=== PATIENT | male | born 1965 | race Caucasian/White ===

== ENCOUNTER → 2018-02-01 11:21 | Outpatient (CLI) | payer OTHER ==
[2016-09-16 12:27] VITALS: BMI 29.3
[~2018-02-01 11:21] MED LIST: BACTRIM 400-801 TAB PO; BACTRIM DS TABL1 TAB PO; BAYER CHEWABLE81 MG PO; DILAUDID8 MG PO; HYDROCODONE-APA1 TAB PO; IBUPROFEN800 MG PO; PERCOCET 10/3251 TA1 PO; TUMS500 MG PO; VICOPROFEN 7.5/1 TAB PO; ZANTAC150 MG PO; [UNRECOGNIZED DRUG - OTHER] PO
[2018-02-01 11:41] LABS: BASOPHILS 0.3 % (0-2); EOSINOPHILS 2.4 % (0-7); HEMATOCRIT 41.5 % (42.0-54.0); HEMOGLOBIN 13.8 g/dL (13.5-17.5); IMMATURE GRANULOCYTES 0.3 % (0-5); LYMPHOCYTES 29.8 % (15-50); MCH 29.4 pg (26.0-34.0); MCHC 33.3 g/dL (31.0-37.0); MCV 88.5 fL (80.0-100.0); MEAN PLATELET VOLUME 9.9 fL (7.4-10.4); MONOCYTES 10.7 % (2-11); NEUTROPHILS 56.5 % (40-80); RBC 4.69 10x6/uL (4.20-6.10); WBC 6.3 10x3/uL (4.8-10.8)
[2018-02-01 11:42] LABS: PLATELET COUNT 250 10x3/uL (130-400)
[2018-02-01 12:43] LABS: ERYTHROCYTE SEDIMENTATION RATE 9 mm/hr (0-20)
== END | disposition home or self-care (01) ==
LOC: D.LABREF 11:21
PROVIDERS: Nurse Practitioner Family
DX: M25.562 Pain in left knee (principal)

== ENCOUNTER → 2018-03-17 10:30 | Outpatient (CLI) | payer OTHER ==
[2016-09-16 12:27] VITALS: BMI 29.3
== END | disposition home or self-care (01) ==
LOC: D.RAD 10:15
DX: Z02.71 Encounter for disability determination (principal)

== ENCOUNTER → 2018-03-24 14:26 | Outpatient (CLI) | payer OTHER ==
[2016-09-16 12:27] VITALS: BMI 29.3
== END | disposition home or self-care (01) ==
LOC: D.RAD 14:26
DX: M54.2 Cervicalgia (principal); M54.5 Low back pain

== ENCOUNTER 2018-11-28 15:18 | Inpatient (IN) | payer MEDICAID ==
[~2018-11-28] VITALS: Ht 188 cm; Wt 98.4 kg
[2018-11-28 16:24] LABS: BASOPHILS 0.1 % (0-2); EOSINOPHILS 0.6 % (0-7); HEMOGLOBIN 12.4 g/dL (13.5-17.5); IMMATURE GRANULOCYTES 0.3 % (0-5); LYMPHOCYTES 8.5 % (15-50); MCH 28.1 pg (26.0-34.0); MCHC 33.5 g/dL (31.0-37.0); MCV 83.9 fL (80.0-100.0); MONOCYTES 6.8 % (2-11); NEUTROPHILS 83.7 % (40-80); RBC 4.41 10x6/uL (4.20-6.10); RDW 13.4 % (11.5-14.5); WBC 15.5 10x3/uL (4.8-10.8)
[2018-11-28 16:25] LABS: PLATELET COUNT 331 10x3/uL (130-400)
[2018-11-28 16:42] LABS: ALBUMIN 2.6 g/dL (3.4-5.0); ALKALINE PHOSPHATASE 86 U/L (46-116); ALT (SGPT) 20 U/L (10-68); BILIRUBIN - TOTAL 0.37 mg/dL (0.2-1.3); CALC OSMOLALITY 270 mosm/kg (275-300); CALCIUM 8.3 mg/dL (8.5-10.1); CARBON DIOXIDE 24.6 mmol/L (21.0-32.0); CHLORIDE - SERUM 96 mmol/L (98-107); CREATININE - SERUM 0.8 mg/dL (0.6-1.3); POTASSIUM - SERUM 3.8 mmol/L (3.5-5.1); PROTEIN - SERUM 7.5 g/dL (6.4-8.2); SODIUM 133 mmol/L (136-145); UREA NITROGEN 16 mg/dL (7-18); eGFR NON AFRICAN AMERICAN > 90 mL/min (90-120)
[2018-11-28 16:46] LABS: GLUCOSE 179 mg/dL (74-106)
[2018-11-28 17:50] LABS: C-REACTIVE PROTEIN 20.4 mg/dL (0.0-0.9)
--- NOTE | 2018-11-28 19:32 | NUR ---
ZOSYN INFUSION COMPLETE.
[2018-11-28 19:55] VITALS: BP 150/83
--- NOTE | 2018-11-28 20:19 | NUR ---
PT ARRIVED TO M3 WITH HOSPITAL FROM ER, PT ALERT AND ORIENTED.
[2018-11-28 23:41] VITALS: BP 147/80
[2018-11-28] MEDS ORDERED: NEURONTIN 400400 MG PO (23:50)
[2018-11-28] MEDS ORDERED: IBUPROFEN800 MG PO (23:51)
[2018-11-28] MEDS ORDERED: MS CONTIN30 MG PO (23:52)
[2018-11-28] MEDS ORDERED: HYDROCODON-ACE1 EA10 PO (23:53)
[2018-11-29 00:09] VITALS: BP 150/83; BMI 27.9
--- NOTE | 2018-11-29 00:13 | NUR ---
REST QUIETLY IN BED, DENIES NEEDS AT THIS TIME, CALL LIGHT IN REACH.
--- NOTE | 2018-11-29 02:04 | NUR ---
REST IN BED, CALL LIGHT IN REACH.
--- NOTE | 2018-11-29 03:45 | NUR ---
UA SAMPLE COLLECTED AND SENT IT TO LAB.
[2018-11-29 03:46] VITALS: BP 154/81
[2018-11-29 04:44] LABS: UDS - AMPHET NEGATIVE QUAL (NEGATIVE); UDS - BARB NEGATIVE QUAL (NEGATIVE); UDS - BENZO NEGATIVE QUAL (NEGATIVE); UDS - COCAINE NEGATIVE QUAL (NEGATIVE); UDS - OPIATE POSITIVE QUAL (NEGATIVE); UDS - PCP NEGATIVE QUAL (NEGATIVE); UDS - THC NEGATIVE QUAL (NEGATIVE)
[2018-11-29 06:00] LABS: BASOPHILS 0.1 % (0-2); EOSINOPHILS 0.7 % (0-7); HEMATOCRIT 33.3 % (42.0-54.0); HEMOGLOBIN 11.4 g/dL (13.5-17.5); IMMATURE GRANULOCYTES 0.2 % (0-5); LYMPHOCYTES 12.4 % (15-50); MCH 28.3 pg (26.0-34.0); MCHC 34.2 g/dL (31.0-37.0); MCV 82.6 fL (80.0-100.0); MEAN PLATELET VOLUME 8.8 fL (7.4-10.4); MONOCYTES 8.1 % (2-11); NEUTROPHILS 78.5 % (40-80); PLATELET COUNT 335 10x3/uL (130-400); RBC 4.03 10x6/uL (4.20-6.10); RDW 13.5 % (11.5-14.5); WBC 13.6 10x3/uL (4.8-10.8)
[2018-11-29 06:41] LABS: ALBUMIN 2.3 g/dL (3.4-5.0); ALKALINE PHOSPHATASE 77 U/L (46-116); ALT (SGPT) 19 U/L (10-68); BILIRUBIN - TOTAL 0.44 mg/dL (0.2-1.3); CALC OSMOLALITY 268 mosm/kg (275-300); CALCIUM 8.2 mg/dL (8.5-10.1); CARBON DIOXIDE 25.4 mmol/L (21.0-32.0); CHLORIDE - SERUM 99 mmol/L (98-107); CREATININE - SERUM 0.7 mg/dL (0.6-1.3); GLUCOSE 135 mg/dL (74-106); PROTEIN - SERUM 6.9 g/dL (6.4-8.2); SODIUM 134 mmol/L (136-145); eGFR NON AFRICAN AMERICAN > 90 mL/min (90-120)
[2018-11-29 06:51] LABS: UREA NITROGEN 10 mg/dL (7-18)
[2018-11-29 07:56] VITALS: BP 147/80
[2018-11-29 12:52] VITALS: BP 157/86
[2018-11-29 15:44] VITALS: BP 152/83
--- NOTE | 2018-11-29 19:10 | NUR ---
RETURNING FROM I&D STEAM STATION SUPERVISOR TO DO ASSWSSMENT. IV PATENT LEFT FOREARM LCTA RESP EVEN AND UNLABORED PEDAL PULSE PRESENT BILAT
[2018-11-29 21:00] VITALS: BP 142/85
[2018-11-30] VITALS: BP 152/85
[2018-11-30 05:04] VITALS: BP 134/76
--- NOTE | 2018-11-30 07:00 | NUR ---
RESTING QUIETLY IN BED, ASKED WHEN HE COULD HAVE HIS NEXT PAIN MED, INSTRUCTED PT THAT HE HAD MORPHINE LESS THAN AN HOUR AGO AND HE COULD HAVE IT EVERY FOUR HOURS, PATIENT SATISFIED. DENIES FURTHER NEEDS OR REQUESTS, IV PATENT AND INFUSING FLUIDS PER ORDERS, CALL LIGHT AT HAND, INSTRUCTED TO CALL WITH NEEDS.
[2018-11-30 08:08] VITALS: BP 147/69
--- NOTE | 2018-11-30 12:16 | MORECARE ---
CASE MANAGEMENT DISCHARGE SUMMARY PATIENT: RAYMUNDO BENAVIDEZ UNIT: [id number] ADM DATE: 11/28/18 AGE: 53 : 69 SEX: M ROOM/BED: D.1211 AUTHOR: SHELLY DODSON PHYSICIAN: REFERRING PHYSICIAN: RAYRAY DUARTE MD DATE OF SERVICE: 11/30/18 Discharge Plan Patient Name: RAYMUNDO BENAVIDEZ Facility: [facility]:Vendor : 1965 Planned Disposition: Anticipated Discharge Date: Discharge Date: Expected LOS: Initial Reviewer: [id number] Initial Review Date: 11/28/2018 Generated: 11/30/18 1:16 pm Comments DCP- Discharge Planning Updated by [id number]: Dorinda Sharma on 11/30/18 11:[address] Patient Name: RAYMUNDO BENAVIDEZ Admission Status: ER Accout number: [id number] Admission Date: 11-28-2018 : 1965 Admission Diagnosis: Attending: RAYRAY DUARTE Current LOS: 2 Anticipated DC Date: Planned Disposition: Primary Insurance: MEDICAID [place] Discharge Planning Comments: CM ATTEMPTED TO TALK TO PATIENT ABOUT DC PLANNING. PATIENT WAS MUMBLING AND DIDN'T WANT TO TALK NOW. WOUND VAC NOTED, WILL NEED TO ASSESS FOR HH AT TIME OF DC. CM WILL FOLLOW UP AT A LATER DATE. Gun Fitter: Dorinda Sharma Patient Name: RAYMUNDO BENAVIDEZ Page [phone] at 1216 All edits/amendments must be made on the electronic document DICTATION DATE: 11/30/18 1215 ELECTRICIAN WIRING: WILMAN 11/30/18 1215 RPT#: [id number] DC DATE: STATUS: ADM IN [facility] [address] [place] [address] END OF REPORT
[2018-11-30 12:29] VITALS: Ht 188 cm; Wt 98.4 kg
[2018-11-30 16:00] VITALS: BP 146/89
--- NOTE | 2018-11-30 16:26 | MORECARE ---
CASE MANAGEMENT DISCHARGE SUMMARY PATIENT: RAYMUNDO BENAVIDEZ UNIT: [id number] ADM DATE: 11/28/18 AGE: 53 : 69 SEX: M ROOM/BED: D.1211 AUTHOR: SHELLY DODSON PHYSICIAN: REFERRING PHYSICIAN: RAYRAY DUARTE MD DATE OF SERVICE: 11/30/18 Discharge Plan Patient Name: RAYMUNDO BENAVIDEZ Facility: [facility]:[place] : 1965 Planned Disposition: Home Health Service Anticipated Discharge Date: Discharge Date: Expected LOS: Initial Reviewer: [id number] Initial Review Date: 11/28/2018 Generated: 11/30/18 5:25 pm Comments DCP- Discharge Planning Updated by [email or web address]: Dorinda Sharma on 11/30/18 3:[address] Patient Name: RAYMUNDO BENAVIDEZ Admission Status: ER Accout number: [id number] Admission Date: 11-28-2018 : 1965 Admission Diagnosis:CUTANEOUS ABSCESS OF LEFT UPPER LIMB Attending: RAYRAY DUARTE Current LOS: 2 Anticipated DC Date: Planned Disposition: Home Health Service Primary Insurance: MEDICAID [place] Discharge Planning Comments: PATIENT SIGNED JENELLE FORM FOR [facility]. CM WILL FAX DOCUMENTS TO [facility] FOR HH. PATIENT ALSO HAS A WOUND VAC, CM WILL CONTACT [facility] ABOUT WOUND VAC. PATIENT'S ADDRESS IS [address] [place] [address] [address] [facility], [id number], IT IS INCORRECT ON THE FACE SHEET, I WILL LET ADMISSIONS KNOW. CM TO FOLLOW AND ASSIST WITH DC PLANNING/NEEDS. Machine Leather Trimmer: Dorinda Sharma DCP- Discharge Planning Updated by [email or web address]: Dorinda Sharma on 11/30/18 11:[address] Patient Name: RAYMUNDO BENAVIDEZ Admission Status: ER Accout number: [id number] Admission Date: 11-28-2018 : 1965 Admission Diagnosis: Attending: RAYRAY DUARTE Current LOS: 2 Anticipated DC Date: Planned Disposition: Primary Insurance: [place]ID [place] Discharge Planning Comments: CM ATTEMPTED TO TALK TO PATIENT ABOUT DC PLANNING. PATIENT WAS MUMBLING AND DIDN'T WANT TO TALK NOW. WOUND VAC NOTED, WILL NEED TO ASSESS FOR HH AT TIME OF DC. CM WILL FOLLOW UP AT A LATER DATE. Machine Leather Trimmer: Dorinda Sharma Coverage Notice Reviewer: [id number] - Dorinda Sharma Notice Issued Date-Time: 11/30/2018 16:17 Notice Type: Patient Choice Letter Notice Delivered To: Patient Relationship to Patient: Self Internet Systems Administrator Name: Delivery Method: HAND - Hand Delivered Courtney Days: Prior Verbal Notification: Recipient Understood Notice: Yes Recipient Signature: Yes Med Rec Note Co-signed by Attending: Coverage Notice Comment: GURVINDER FRAZIER Last DP export: 11/30/18 11:16 a Patient Name: RAYMUNDO BENAVIDEZ Page [phone] at 1626 All edits/amendments must be made on the electronic document DICTATION DATE: 11/30/181624 WELT TREATER: WILMAN 11/30/181624 RPT#: [id number] DC DATE: STATUS: ADM IN [facility] [address] [place] [address] END OF REPORT
--- NOTE | 2018-11-30 16:33 | MORECARE ---
CASE MANAGEMENT DISCHARGE SUMMARY PATIENT: RAYMUNDO BENAVIDEZ UNIT: [id number] ADM DATE: 11/28/18 AGE: 53 : 69 SEX: M ROOM/BED: D.1211 AUTHOR: SHELLY DODSON PHYSICIAN: REFERRING PHYSICIAN: RAYRAY DUARTE MD DATE OF SERVICE: 11/30/18 Discharge Plan Patient Name: RAYMUNDO BENAVIDEZ Facility: [facility]:[place] : 1965 Planned Disposition: Home Health Service Anticipated Discharge Date: Discharge Date: Expected LOS: Initial Reviewer: [id number] Initial Review Date: 11/28/2018 Generated: 11/30/18 5:33 pm Comments DCP- Discharge Planning Updated by [email or web address]: Dorinda Sharma on 11/30/18 3:[address] Patient Name: RAYMUNDO BENAVIDEZ Admission Status: ER Accout number: [id number] Admission Date: 11-28-2018 : 1965 Admission Diagnosis:CUTANEOUS ABSCESS OF LEFT UPPER LIMB Attending: RAYRAY DUARTE Current LOS: 2 Anticipated DC Date: Planned Disposition: Home Health Service Primary Insurance: MED[place]ID [place] Discharge Planning Comments: PATIENT SIGNED JENELLE FORM FOR [facility]. CM WILL FAX DOCUMENTS TO [facility] FOR HH. PATIENT ALSO HAS A WOUND VAC, CM WILL CONTACT [facility] ABOUT WOUND VAC. PATIENT'S ADDRESS IS [address] [place] [address] [address] [facility], [id number], IT IS INCORRECT ON THE FACE SHEET, I WILL LET ADMISSIONS KNOW. CM TO FOLLOW AND ASSIST WITH DC PLANNING/NEEDS. Coremaker Floor: Dorinda Sharma DCP- Discharge Planning Updated by [id number]: Dorinda Sharma on 11/30/18 11:[address] Patient Name: RAYMUNDO BENAVIDEZ Admission Status: ER Accout number: [id number] Admission Date: 11-28-2018 : 1965 Admission Diagnosis: Attending: RAYRAY DUARTE Current LOS: 2 Anticipated DC Date: Planned Disposition: Primary Insurance: MEDICAID [place] Discharge Planning Comments: CM ATTEMPTED TO TALK TO PATIENT ABOUT DC PLANNING. PATIENT WAS MUMBLING AND DIDN'T WANT TO TALK NOW. WOUND VAC NOTED, WILL NEED TO ASSESS FOR HH AT TIME OF DC. CM WILL FOLLOW UP AT A LATER DATE. Coremaker Floor: Doirnda Sharma External Providers [facility] Next Contact Date: Service Request Date: Service Type: Resolution: Reviewer: Comments: External Provider: [facility] Next Contact Date: Service Request Date: Service Type: Resolution: Reviewer: Comments: Coverage Notice Reviewer: [id number] - Dorinda Sharma Notice Issued Date-Time: 11/30/2018 16:17 Notice Type: Patient Choice Letter Notice Delivered To: Patient Relationship to Patient: Self Elementary Tutor Name: Delivery Method: HAND - Hand Delivered Courtney Days: Prior Verbal Notification: Recipient Understood Notice: Yes Recipient Signature: Yes Med Rec Note Co-signed by Attending: Coverage Notice Comment: GURVINDER FRAZIER Last DP export: 11/30/18 3:26 p Patient Name: RAYMUNDO BENAVIDEZ Page [phone] at 1633 All edits/amendments must be made on the electronic document DICTATION DATE: 11/30/18 1633 CALL PERSON: WILMAN 11/30/18 1633 RPT#: [id number] DC DATE: STATUS: ADM IN [facility] [address] [place] [address] END OF REPORT
--- NOTE | 2018-11-30 19:30 | NUR ---
AWAKE BED LOW WITH CALL LIGHT IN PLACE PROSTHESIS IS OFF ...CHHAYA IS ON RT SHOUILDER AND WOUND VAC IS OPERATING. IV IS WITHOUT REDNESS..NO EDEMA ...LCTA AND BOWEL SOUNDS TIMES 4 PT EXPRESSES NEED FOPR PAIN MEDS AT THIS TIME
[2018-11-30 20:00] VITALS: BP 140/80
--- NOTE | 2018-11-30 21:00 | NUR ---
PT HAS BEEN PLACED IN CONTACT ISOLATION PER MD ORDER
[2018-12-01] VITALS: BP 158/93
[2018-12-01 04:00] VITALS: BP 168/89
[2018-12-01 06:45] LABS: BASOPHILS 0.6 % (0-2); EOSINOPHILS 4.1 % (0-7); HEMATOCRIT 32.9 % (42.0-54.0); IMMATURE GRANULOCYTES 0.5 % (0-5); LYMPHOCYTES 27.7 % (15-50); MCH 27.9 pg (26.0-34.0); MCHC 33.4 g/dL (31.0-37.0); MCV 83.5 fL (80.0-100.0); MEAN PLATELET VOLUME 8.6 fL (7.4-10.4); MONOCYTES 8.2 % (2-11); NEUTROPHILS 58.9 % (40-80); RBC 3.94 10x6/uL (4.20-6.10); RDW 13.4 % (11.5-14.5)
[2018-12-01 07:04] LABS: C-REACTIVE PROTEIN 10.6 mg/dL (0.0-0.9); CALC OSMOLALITY 280 mosm/kg (275-300); CALCIUM 8.3 mg/dL (8.5-10.1); CARBON DIOXIDE 24.8 mmol/L (21.0-32.0); CHLORIDE - SERUM 108 mmol/L (98-107); CREATININE - SERUM 0.6 mg/dL (0.6-1.3); GLUCOSE 100 mg/dL (74-106); POTASSIUM - SERUM 3.9 mmol/L (3.5-5.1); SODIUM 142 mmol/L (136-145); UREA NITROGEN 6 mg/dL (7-18); eGFR NON AFRICAN AMERICAN > 90 mL/min (90-120)
[2018-12-01 07:26] LABS: PLATELET COUNT 448 10x3/uL (130-400); WBC 6.6 10x3/uL (4.8-10.8)
[2018-12-01 08:51] VITALS: BP 129/68
[2018-12-01 08:56] LABS: ERYTHROCYTE SEDIMENTATION RATE 50 mm/hr (0-20)
--- NOTE | 2018-12-01 11:10 | NUR ---
WAS MEDICATED WITH MORPHINE FOR C/O PAIN RATING 7/10 ON PAIN SCALE. C/L IN REACH AT BEDSIDE.
--- NOTE | 2018-12-01 13:53 | NUR ---
Nutrition Follow Up: Pt was asleep and no family present at the time of RD visit. Interview deferred. Chart reviewed. Pt is POD 2 and is now in contact isolation. Diet: Regular PO Intake: 67% meal avg No BM since admit I>O Meds and labs reviewed RD following.
--- NOTE | 2018-12-01 14:39 | NUR ---
Wound Vac dressing change: Right forearm/surgical incision: 9cm x 3.5cm x 2cm x 3cm from 12-6 oclock No muscle, bone or tendon exposed. Wound bed is red/ beefy and bleeds easily. Periwound - no redness / slight edema Wound edges - normal Moderate sanguinous drainage noted with no odor. -125mmhg moderate continuous Education provided on frequency of dressing changes and healing process.
--- NOTE | 2018-12-01 15:18 | NUR ---
PT WAS MEDICATED WITH MORPHINE FOR C/O PAIN RATING 8/10 ON PAIN SCALE. C/L IN REACH AT BEDSIDE.
[2018-12-01 15:20] VITALS: BP 130/87
--- NOTE | 2018-12-01 18:56 | NUR ---
IV RESTARTED X2 TRTIES...IV NOW IN LEFT AC WITH A 20 GAUGE OPSITE APPLIED PT ASKING FOR PAIN MED AT THIS TIME RESP EVEN AND UNLABORED SKIN WARN AND DRY AND LCTA ...WOUND PUMP ATTACHED AND FUNCTIONING WELL LCTA AND BOWEL SOUNDS X4
[2018-12-01 20:00] VITALS: BP 172/78
--- NOTE | 2018-12-01 21:42 | NUR ---
IV SITE TO LEFT AC PATENT ...FLUSHES WITH NO PAIN AND NO EDEMA BUT WILL NOT TOLERATE FLUIDS AT 200 ...WILL MAINTAIN FOR NOW FOR MEDS AT [facility] OR [facility] TILL BETTER ACCESS OBTAINED
[2018-12-01 23:56] VITALS: BP 175/78
--- NOTE | 2018-12-02 03:17 | NUR ---
PT GETTING VITALS DONE. PT IS AAO. UP AD VIKTOR. ASKING ABOUT PAIN MEDS. PT HAS WOUND VAC, SUCTION INTACT NO S/S OF DISTRESSS. DENIES ANY OTHER NEEDS. BEDLOW AND CALL LIGHT IN REACH. WILL CPOC
--- NOTE | 2018-12-02 03:56 | NUR ---
PT LAYING IN BED. STATES PAIN FEELS BETTER. DENIES ANY OTHER NEEDS. NO S/S OF DISTRESS. WILL CPOC
[2018-12-02 04:00] VITALS: BP 175/75
--- NOTE | 2018-12-02 07:45 | NUR ---
ASSESSMENT COMPLETE. SL TO L AC PATENT. WOUNDVAC IN USE TO R ARM. HISTORY OF L BKA. CONTACT ISOLATION PRECAUTIONS IN USE. DENIES ANY NEEDS AT THIS TIME.
--- NOTE | 2018-12-02 12:30 | NUR ---
IV TO L AC LEAKING. UNABLE TO RESITE IV X 2 ATTEMPTS BY NANCY TELLEZ LPN.
--- NOTE | 2018-12-02 13:03 | NUR ---
ATTEMPTD TO RESITE IV AND PATIENT REQUESTED TO WAIT AN HOUR SO HE COULD TAKE A NAP. INSTRUCTED TO USE CALL LIGHT WHEN READY TO RESITE IV. VOICED UNDERSTANDING.
--- NOTE | 2018-12-02 14:26 | OP ---
PATIENT NAME: RAYMUNDO BENAVIDEZ MEDICAL RECORD: [id number] :[birth year] LOCATION:D.M3 D.1211 ADMISSION DATE:11/28/18 SURGEON: RAYRAY DUARTE MD DATE OF OPERATION: 11/29/2018 PREOPERATIVE DIAGNOSES: 1. Large abscess of the right forearm. 2. Secondary abscess of the right hand dorsum. PROCEDURES: 1. Excisional debridement of the right forearm to include skin and subcutaneous tissue, portions of fat, fascia, muscle (dimensions 20 cm x 5 cm x 3 cm, proximal undermining of approximately 3 cm). 2. Excisional debridement of the hand dorsum 2.5 cm x 2.5 cm x 0.5 cm. 3. Application of wound VAC to the right forearm. SURGEON: Rayray Duarte MD RETAIL ASSISTANT STORE MANAGER: Jayro Lowe APN INTRAOPERATIVE COMPLICATIONS: None. SUMMARY OF PATHOLOGIC FINDINGS: Upon entering the cavity of the abscess seen on CT scan, massive amounts of very foul smelling purulent drainage was liberated from the forearm. Having completed this, combination of curettage, rongeur, and scalpel were utilized to excise all nonviable-appearing tissue. Pulsatile lavage irrigation was carried out for more than 3 liters. Next, attention was turned to the hand dorsum. Again, small incision was made and then all nonviable-appearing tissue with rongeur and curettage were excised with a scalpel. Pulsatile lavage was carried out here as well. Please note that both of these wounds were cultured separately and labeled thusly. Having completed the excisional debridement as well as irrigation, the large forearm wound was treated with a wound VAC at 125 mm medium intensity, continuous suction. The smaller dorsal hand wound was packed with quarter-inch iodoform. Having completed this, the patient was awakened and taken to recovery room in stable condition. All final needle and sponge counts were correct. TRANSINT:[id number] Voice Confirmation ID: [id number] DOCUMENT ID: [id number] FELICIA VIGIL, RAYRAY LAMAR at 1426 CC: [id number] DICTATION DATE: 11/29/18 180 DIRECTOR OF OPERATIONS FOR THERAPY: 11/29/18 2354 ADM IN [place] [address] [place] [address]
--- NOTE | 2018-12-02 15:15 | NUR ---
IV RESTARTED IN L AC WITH 22 GA. URIINE EMPTIED OF 500CC.
--- NOTE | 2018-12-02 15:25 | NUR ---
MORPHINE GIVEN FOR COMPLAINT OF PAIN. DENIES ANY FURTHER NEEDS AT THIS TIME.
[2018-12-02 20:10] VITALS: BP 179/85
[2018-12-02 23:49] VITALS: BP 153/69
[2018-12-03 04:10] VITALS: BP 181/86
--- NOTE | 2018-12-03 07:51 | NUR ---
ROUNDING DONE WITH PATIENT AROUSES EASILY I WALK INTO THE ROOM AND HE ASKS FOR PAIN MEDS. 07/28. IV SEEN TO LEFT AC IS SLIGHTLY SWOLLEN BUT PATIENT IS INSISTANT I GIVE HIM HIS PAIN MEDICATION. DONE. IV CATH REMOVED WITH CATH TIP INTACT. IN CONTACT ISOLATION. WOUND VAC WITH SETTING AT 125 SEEN TO RIGHT ARM THAT IS WRAPPED IN JUMA. PATIENT IS COVERED WITH MULTIPLE TATTOOS.
[2018-12-03 08:28] VITALS: BP 142/82
--- NOTE | 2018-12-03 08:33 | NUR ---
ASHLEY DOMINGO, SURVEYOR INSTRUMENT ASSISTANT NURSE HERE TO SITE IV PATIENT IS VERY HARD STICK. SHE COMES OUT OF THE ROOM TELLING ME THAT PATIENT REFUSED TO HAVE IT DONE AT THIS TIME "I HAVN'T BEEN ABLE TO BEND MY ARM IN DAYS AND I WANT TO REST SO YOU CAN COME BACK". ASHLEY TOLD HIM THAT SHE WAS UNSURE WHEN SHE WOULD BE ABLE TO COME BACK AND NOW WOULD BE A GOOD TIME FOR HER. HE TOLD HER TO LEAVE.
--- NOTE | 2018-12-03 09:10 | NUR ---
UNABLE TO IV ANTIBIOTICS PATIENT IS REFUSING TO LET ASHLEY DOMINGO RN VASCUALR NURSE RE-SITE HIM AT THIS TIME.
--- NOTE | 2018-12-03 10:34 | NUR ---
I CALLED ERIN HARRY NOT WANTING HIS IV RE-SITED AT THIS TIME AND MISSING ALL HIS IV ANTIBIOTICS. I SPOKE WITH TERESA
--- NOTE | 2018-12-03 11:55 | NUR ---
1036-LOUIS LOERA APN TO CALL BACK AND ASKED THAT I LET DR WAGNER KNOW. I MADE HER AWARE OF THIS. AWAITING NEW ORDERS.
--- NOTE | 2018-12-03 12:12 | NUR ---
PATIENT IS RESTING ON SIDE, EYES CLOSED. APPEARS PAIN FREE AT THIS MOMENT.
--- NOTE | 2018-12-03 13:15 | MORECARE ---
CASE MANAGEMENT DISCHARGE SUMMARY PATIENT: RAYMUNDO BENAVIDEZ UNIT: [id number] ADM DATE: 11/28/18 AGE: 53 : 69 SEX: M ROOM/BED: D.1211 AUTHOR: SHELLY DODSON PHYSICIAN: REFERRING PHYSICIAN: RAYRAY DUARTE MD DATE OF SERVICE: 12/03/18 Discharge Plan Patient Name: RAYMUNDO BENAVIDEZ Facility: [facility]:[place] : 1965 Planned Disposition: Home Health Service Anticipated Discharge Date: Discharge Date: Expected LOS: Initial Reviewer: [id number] Initial Review Date: 11/28/2018 Generated: 12/03/18 2:15 pm Comments DCP- Discharge Planning Updated by [email or web address]: Dorinda Sharma on 12/03/18 12:[address] Patient Name: RAYMUNDO BENAVIDEZ Admission Status: ER Accout number: [id number] Admission Date: 11-28-2018 : 1965 Admission Diagnosis:CUTANEOUS ABSCESS OF LEFT UPPER LIMB Attending: RAYRAY DUARTE Current LOS: 5 Anticipated DC Date: Planned Disposition: Home Health Service Primary Insurance: [place]ID [place] Discharge Planning Comments: CM SPOKE WITH CANDIE WITH ON LICENSE OF [facility], EVERYTHING IS SET UP FOR HIS WOUND VAC TO DC TO HOME. CM WILL NEED TO CALL [employer] TO BRING IT UP. [facility] SET UP FOR HH WHEN DISHCARGED. POSSIBLE DC DATE ThursdayNov. CM TO FOLLOW AND ASSIST NEEDED WITH DC PLANNING/NEEDS. Parts Room Clerk: Dorinda Sharma DCP- Discharge Planning Updated by [email or web address]: Dorinda Sharma on 11/30/18 3:[address] Patient Name: RAYMUNDO BENAVIDEZ Admission Status: ER Accout number: [id number] Admission Date: 11-28-2018 : 1965 Admission Diagnosis:CUTANEOUS ABSCESS OF LEFT UPPER LIMB Attending: RAYRAY DUARTE Current LOS: 2 Anticipated DC Date: Planned Disposition: Home Health Service Primary Insurance: [place]ID [place] Discharge Planning Comments: PATIENT SIGNED JENELLE FORM FOR [facility]. CM WILL FAX DOCUMENTS TO [facility] FOR HH. PATIENT ALSO HAS A WOUND VAC, CM WILL CONTACT ON LICENSE OF [facility] ABOUT WOUND VAC. PATIENT'S ADDRESS IS [address] [place] [address] [place], [id number], IT IS INCORRECT ON THE FACE SHEET, I WILL LET ADMISSIONS KNOW. CM TO FOLLOW AND ASSIST WITH DC PLANNING/NEEDS. Parts Room Clerk: Dorinda Sharma DCP- Discharge Planning Updated by [id number]: Dorinda Sharma on 11/30/18 11:[address] Patient Name: RAYMUNDO BENAVIDEZ Admission Status: ER Accout number: [id number] Admission Date: 11-28-2018 : 1965 Admission Diagnosis: Attending: RAYRAY DUARTE Current LOS: 2 Anticipated DC Date: Planned Disposition: Primary Insurance: [place] Discharge Planning Comments: CM ATTEMPTED TO TALK TO PATIENT ABOUT DC PLANNING. PATIENT WAS MUMBLING AND DIDN'T WANT TO TALK NOW. WOUND VAC NOTED, WILL NEED TO ASSESS FOR HH AT TIME OF DC. CM WILL FOLLOW UP AT A LATER DATE. Parts Room Clerk: Dorinda Sharma Coverage Notice Reviewer: [id number] - Dorinda Sharma Notice Issued Date-Time: 11/30/2018 16:17 Notice Type: Patient Choice Letter Notice Delivered To: Patient Relationship to Patient: Self Straw Boss Name: Delivery Method: HAND - Hand Delivered Courtney Days: Prior Verbal Notification: Recipient Understood Notice: Yes Recipient Signature: Yes Med Rec Note Co-signed by Attending: Coverage Notice Comment: GURVINDER FRAZIER HH Last DP export: 11/30/18 3:33 p Patient Name: RAYMUNDO BENAVIDEZ Page [phone] at 1315 All edits/amendments must be made on the electronic document DICTATION DATE: 12/03/18 1314 HARPSICHORD MAKER: WILMAN 12/03/18 1314 RPT#: [id number] DC DATE: STATUS: ADM IN [facility] [address] [place] [address] END OF REPORT
--- NOTE | 2018-12-03 14:08 | NUR ---
PATIENT LAYING ON RIGHT SIDE WITH PILLOW OVER SIDE OF HEAD, RESP ARE EVEN. PATIENT MOVING RIGHT LEG IN BED SOME, SHIFTING POSITION. APPEARS PAIN FREE, WILL CONTINUE TO MONITOR.
--- NOTE | 2018-12-03 14:33 | NUR ---
CALLED TO ROOM, PATIENT IS WANTING HIS IV "HOOKED BACK UP". I TOLD HIM HE DID NOT AN IV THAT ASHLEY TRIED TO SITE IT THIS AM. HE ASKED THAT I PLEASE CALL HER AND SEE IF SHE CAN COME. I EMPTIED 300 CC OF CLEAR YELLOW URINE FROM URINAL. CALL INTO ASHLEY DOMINGO RN TO SEE IF SHE CAN START IV.
--- NOTE | 2018-12-03 14:36 | NUR ---
ASHLEY DOMINGO RN VASCUALR NURSE STATES THAT SHE WILL BE DOWN SOON SHE CAN.
--- NOTE | 2018-12-03 14:44 | NUR ---
LOUIS LOERA APN TO CALL ME AND LET ME KNOW THAT DR DUARTE IS GOING TO DISCHARGE PATIENT ON ORAL ANTIBIOTICS PAST SPEAKING WITH DR OSORIO. THIS IS RELAYED TO THE PATIENT. I CALLED JALEN LIZARRAGA RN WITH WOUND CARE TO LET HER KNOW TO PLACE HOME WOUND VAC ON PATIENT. I CALLED CHRISTINA WITH CM, TO LET HER KNOW ALSO.
[2018-12-03] MEDS ORDERED: AUGMENTIN 875-11 TAB PO (14:49)
--- NOTE | 2018-12-03 15:13 | NUR ---
CALLED TO ROOM PAST CHRISTINA WITH CM JUST LEAVING. PATIENT ASKED IF HIS ARM DRESSING WILL BE CHANGED, I TRIED TO TELL HIM THAT IT WILL BE AND HE STOPPED ME AND TOLD ME THAT I HAVE BEEN RUDE TO HIM ALL DAY. I TOLD HIM THAT I HAVE NOT. HE COMPLAINED OF HIS SITE WHERE THE IV WAS HURTING AND I TOLD HIM THAT I KNEW THAT THIS AM FOR HIS PAIN MEDS AND THAT HE WANTED IT ANYWAY, THAT I HAD ASKED ASHLEY TO RE-SITE HIS IV AND HE REFUSED AT THAT TIME. HE APOLOGIZED. I CALLED AND TALKED TO LAUREN IN THE PHARMACY TO PLEASE LOAD HIS MS CHECO IN THE OMNICELL SO THAT I COULD GIVE IT TO HIM SO THAT JALEN WITH WOUND CARE CAN CHANGE HIS WOUND VAC OUT.
--- NOTE | 2018-12-03 15:23 | MORECARE ---
CASE MANAGEMENT DISCHARGE SUMMARY PATIENT: RAYMUNDO BENAVIDEZ UNIT: [id number] ADM DATE: 11/28/18 AGE: 53 : 69 SEX: M ROOM/BED: D.1211 AUTHOR: SHELLY DODSON PHYSICIAN: REFERRING PHYSICIAN: RAYRAY DUARTE MD DATE OF SERVICE: 12/03/18 Discharge Plan Patient Name: RAYMUNDO BENAVIDEZ Facility: [facility]:[place] : 1965 Planned Disposition: Home Health Service Anticipated Discharge Date: 12/03/18 Discharge Date: Expected LOS: 5 Initial Reviewer: [id number] Initial Review Date: 11/28/2018 Generated: 12/03/18 4:22 pm Comments DCP- Discharge Planning Updated by [id number]: Dorinda Sharma on 12/03/18 2:[address] Patient Name: RAYMUNDO BENAVIDEZ Admission Status: ER Accout number: [id number] Admission Date: 11-28-2018 : 1965 Admission Diagnosis:CUTANEOUS ABSCESS OF LEFT UPPER LIMB Attending: RAYRAY DUARTE Current LOS: 5 Anticipated DC Date: 12-03-2018 Planned Disposition: Home Health Service Primary Insurance: [place] Discharge Planning Comments: PATIENT SIGNED FORM TO RECIEVE WOUND VAC. PAPERS FAXED TO [facility] AND TO [facility]. [facility] WILL DELIVER TO PATIENT'S ROOM. CM SPOKE WITH [facility] AND THEY WILL SEE PATIENT THURSDAY FOR WOUND VAC DRESSING CHANGE. NO OTHER NEEDS. DC TO HOME. Drycleaner: Dorinda Sharma DCP- Discharge Planning Updated by [id number]: Dorinda Sharma on 12/03/18 12:[address] Patient Name: RAYMUNDO BENAVIDEZ Admission Status: ER Accout number: [id number] Admission Date: 11-28-2018 : 1965 Admission Diagnosis:CUTANEOUS ABSCESS OF LEFT UPPER LIMB Attending: RAYRAY DUARTE Current LOS: 5 Anticipated DC Date: Planned Disposition: Home Health Service Primary Insurance: [place] Discharge Planning Comments: CM SPOKE WITH CANDIE WITH [facility], EVERYTHING IS SET UP FOR HIS WOUND VAC TO DC TO HOME. CM WILL NEED TO CALL [facility] [place] TO BRING IT UP. [facility] SET UP FOR HH WHEN DISHCARGED. POSSIBLE DC DATE ThursdayNov. CM TO FOLLOW AND ASSIST NEEDED WITH DC PLANNING/NEEDS. Drycleaner: Dorinda Sharma DCP- Discharge Planning Updated by [id number]: Dorinda Sharma on 11/30/18 3:[address] Patient Name: RAYMUNDO BENAVIDEZ Admission Status: ER Accout number: [id number] Admission Date: 11-28-2018 : 1965 Admission Diagnosis:CUTANEOUS ABSCESS OF LEFT UPPER LIMB Attending: RAYRAY DUARTE Current LOS: 2 Anticipated DC Date: Planned Disposition: Home Health Service Primary Insurance: [place] Discharge Planning Comments: PATIENT SIGNED JENELLE FORM FOR [facility]. CM WILL FAX DOCUMENTS TO [facility] FOR HH. PATIENT ALSO HAS A WOUND VAC, CM WILL CONTACT [facility] ABOUT WOUND VAC. PATIENT'S ADDRESS IS [address] [place] [address] [facility], [address], IT IS INCORRECT ON THE FACE SHEET, I WILL LET ADMISSIONS KNOW. CM TO FOLLOW AND ASSIST WITH DC PLANNING/NEEDS. Drycleaner: Dorinda Sharma DCP- Discharge Planning Updated by [id number]: Dorinda Sharma on 11/30/18 11:[address] Patient Name: RAYMUNDO BENAVIDEZ Admission Status: ER Accout number: [id number] Admission Date: 11-28-2018 : 1965 Admission Diagnosis: Attending: RAYRAY DUARTE Current LOS: 2 Anticipated DC Date: Planned Disposition: Primary Insurance: [place] Discharge Planning Comments: CM ATTEMPTED TO TALK TO PATIENT ABOUT DC PLANNING. PATIENT WAS MUMBLING AND DIDN'T WANT TO TALK NOW. WOUND VAC NOTED, WILL NEED TO ASSESS FOR HH AT TIME OF DC. CM WILL FOLLOW UP AT A LATER DATE. Drycleaner: Dorinda Sharma Coverage Notice Reviewer: [id number] - Dorinda Sharma Notice Issued Date-Time: 11/30/2018 16:17 Notice Type: Patient Choice Letter Notice Delivered To: Patient Relationship to Patient: Self Acid Bath Mixer Name: Delivery Method: HAND - Hand Delivered Courtney Days: Prior Verbal Notification: Recipient Understood Notice: Yes Recipient Signature: Yes Med Rec Note Co-signed by Attending: Coverage Notice Comment: [facility] Last DP export: 12/03/18 12:15 p Patient Name: REEMA, RAYMUNDO Page [id number] at 1523 All edits/amendments must be made on the electronic document DICTATION DATE: 12/03/181521 SENIOR NET ENGINEER: WILMAN 12/03/181521 RPT#: [id number] DC DATE: STATUS: ADM IN [facility] [address] [place] [address] END OF REPORT
--- NOTE | 2018-12-03 16:06 | NUR ---
WOUND VAC DRESSING CHANGE: RIGHT FOREARM: I&D 8CM X 3CM X 1CM X 0.4CM FROM 3-6 OCLOCK (IMPROVED) NO MUSCLE, TENDON OR BONE EXPOSED SMALL SEROSANGUINOUS DRAINAGE WITH NO ODOR -125MMHG MODERATE CONTINUOUS EDUCATION: HOME VAC INFORMATION/HOME HEALTH PT TOLERATED WELL. ALSO CHANGED DRESSING ON RIGHT TOP OF HAND. 2.5CM X 2.5CM X 1CM WITH UNDERMINING AT 5 AND 7 OCLOCK OF 1CM. WOUND BED IS BRIGHT PINK, WITH NO ODOR. CLEANSED AND PACKED WITH 1/4" PLAIN PACKING MOISTENED WITH NORMAL SALINE. PT TOLERATED WELL.
--- NOTE | 2018-12-03 16:09 | NUR ---
VERBAL AND WRITTEN DISCHARGE INSTRUCTIONS GIVEN TO PATIENT. DISCHARGED HOME VIA HIS WHEELCHAIR. ON THE WAY OUT OF THE DOOR, PATIENT STATES THAT HE DOES NOT HAVE ANY PAIN MEDICATION AT HOME. I CALLED ORTHO OFFICE TO SPEAK TO LOUIS LOERA APN TO SEE IF SHE WILL WRITE A SCRIPT. AWAITING CALL BACK.
--- NOTE | 2018-12-03 16:12 | NUR ---
LOUIS LOERA APN TO CALL ME BACK AND TELL ME THAT THE PATIENT HAS 120 NORCO AND 60 MS CONTIN 30 MG TABS FILLED JUST 20 DAYS AGO AND WILL NOT FILL THESE. THIS WILL BE RELAYED TO THE PATIENT.
--- NOTE | 2018-12-03 16:19 | NUR ---
I INFORMED IRIS THAT HE WILL NOT BE GETTING HIS SCRIPTS FILLED HE IS UNDER A PAIN CONTRACT WITH [employer]. PATIENT STATES THAT HE IS NO LONGER UNDER A PAIN CONTRACT WITH HIM AND THAT HE "LAID IN BED FOR TWO DAYS AND ATE PAIN MEDICATION". I APOLOGIZED TO HIM THAT WE CAN NOT FILL THESE SCRIPTS PER LOUIS. DAVID CHANG CNA AT DESK WHEN HE STATES THIS.
--- NOTE | 2018-12-03 16:44 | MORECARE ---
CASE MANAGEMENT DISCHARGE SUMMARY PATIENT: RAYMUNDO BENAVIDEZ UNIT: [id number] ADM DATE: 11/28/18 AGE: 53 : 69 SEX: M ROOM/BED: D.1211 AUTHOR: SHELLY DODSON PHYSICIAN: REFERRING PHYSICIAN: RAYRAY DUARTE MD DATE OF SERVICE: 12/03/18 Discharge Plan Patient Name: RAYMUNDO BENAVIDEZ Facility: [facility]:[place] : 1965 Planned Disposition: Home Health Service Anticipated Discharge Date: 12/03/18 Discharge Date: 12/03/2018 Expected LOS: 5 Initial Reviewer: [id number] Initial Review Date: 11/28/2018 Generated: 12/03/18 5:44 pm Comments DCP- Discharge Planning Updated by [id number]: Dorinda Sharma on 12/03/18 2:[address] Patient Name: RAYMUNDO BENAVIDEZ Admission Status: ER Accout number: [id number] Admission Date: 11-28-2018 : 1965 Admission Diagnosis:CUTANEOUS ABSCESS OF LEFT UPPER LIMB Attending: RAYRAY DUARTE Current LOS: 5 Anticipated DC Date: 12-03-2018 Planned Disposition: Home Health Service Primary Insurance: [place] Discharge Planning Comments: PATIENT SIGNED FORM TO RECIEVE WOUND VAC. PAPERS FAXED TO [facility] AND TO [facility] [place]. [facility] WILL DELIVER TO PATIENT'S ROOM. CM SPOKE WITH [facility] AND THEY WILL SEE PATIENT THURSDAY FOR WOUND VAC DRESSING CHANGE. NO OTHER NEEDS. DC TO HOME. Boomboat Operator: Dorinda Sharma DCP- Discharge Planning Updated by [id number]: Dorinda Sharma on 12/03/18 12:[address] Patient Name: RAYMUNDO BENAVIDEZ Admission Status: ER Accout number: [id number] Admission Date: 11-28-2018 : 1965 Admission Diagnosis:CUTANEOUS ABSCESS OF LEFT UPPER LIMB Attending: RAYRAY DUARTE Current LOS: 5 Anticipated DC Date: Planned Disposition: Home Health Service Primary Insurance: [place] Discharge Planning Comments: CM SPOKE WITH CANDIE WITH [facility], EVERYTHING IS SET UP FOR HIS WOUND VAC TO DC TO HOME. CM WILL NEED TO CALL [facility] TO BRING IT UP. [facility] SET UP FOR HH WHEN DISHCARGED. POSSIBLE DC DATE ThursdayNov. CM TO FOLLOW AND ASSIST NEEDED WITH DC PLANNING/NEEDS. Boomboat Operator: Dorinda Sharma DCP- Discharge Planning Updated by [id number]: Dorinda Sharma on 11/30/18 3:[address] Patient Name: RAYMUNDO BENAVIDEZ Admission Status: ER Accout number: [id number] Admission Date: 11-28-2018 : 1965 Admission Diagnosis:CUTANEOUS ABSCESS OF LEFT UPPER LIMB Attending: RAYRAY DUARTE Current LOS: 2 Anticipated DC Date: Planned Disposition: Home Health Service Primary Insurance: [place] Discharge Planning Comments: PATIENT SIGNED JENELLE FORM FOR [facility]. CM WILL FAX DOCUMENTS TO [facility] FOR HH. PATIENT ALSO HAS A WOUND VAC, CM WILL CONTACT [facility] ABOUT WOUND VAC. PATIENT'S ADDRESS IS [address] [place] [address] [facility], [id number], IT IS INCORRECT ON THE FACE SHEET, I WILL LET ADMISSIONS KNOW. CM TO FOLLOW AND ASSIST WITH DC PLANNING/NEEDS. Boomboat Operator: Dorinda Sharma DCP- Discharge Planning Updated by [id number]: Dorinda Sharma on 11/30/18 11:[address] Patient Name: RAYMUNDO BENAVIDEZ Admission Status: ER Accout number: [id number] Admission Date: 11-28-2018 : 1965 Admission Diagnosis: Attending: RAYRAY DUARTE Current LOS: 2 Anticipated DC Date: Planned Disposition: Primary Insurance: [place] Discharge Planning Comments: CM ATTEMPTED TO TALK TO PATIENT ABOUT DC PLANNING. PATIENT WAS MUMBLING AND DIDN'T WANT TO TALK NOW. WOUND VAC NOTED, WILL NEED TO ASSESS FOR HH AT TIME OF DC. CM WILL FOLLOW UP AT A LATER DATE. Boomboat Operator: Dorinda Sharma Coverage Notice Reviewer: [id number] - Dorinda Sharma Notice Issued Date-Time: 11/30/2018 16:17 Notice Type: Patient Choice Letter Notice Delivered To: Patient Relationship to Patient: Self Pediatric Critical Care Nurse Name: Delivery Method: HAND - Hand Delivered Courtney Days: Prior Verbal Notification: Recipient Understood Notice: Yes Recipient Signature: Yes Med Rec Note Co-signed by Attending: Coverage Notice Comment: [facility] Last DP export: 12/03/18 2:22 p Patient Name: RAYMUNDO BENAVIDEZ Page [id number] at 1644 All edits/amendments must be made on the electronic document DICTATION DATE: 12/03/181642 CONTROL OFFICER: WILMAN 12/03/181642 RPT#: [id number] DC DATE:12/03/18 STATUS: DIS IN [facility] [address] [place] [address] END OF REPORT
[2018-12-07 17:10] LABS: AEROBE ID Final report (())
[2018-12-07 17:10] LABS: AEROBE ID Final report (())
[2018-12-08 17:10] LABS: AEROBE ID Final report (())
[2018-12-08 17:10] LABS: AEROBE ID Final report (())
[2018-12-09 20:07] LABS: AEROBE ID Final report (())
[2018-12-10 13:17] LABS: AEROBE ID Final report (()); RESULT 1 Eikenella corrodens (())
== END 2018-12-03 16:28 | disposition home health service (06) | DRG 501 ==
LOC: D.ER 15:18 → D.M3 18:48
PROVIDERS: Family Medicine; Student in an Organized Health Care Education/Training Program; ADMIT Orthopaedic Surgery
PROC: 0KBC0ZZ Excision of Right Hand Muscle, Open Approach (ICD-10-PCS; 2018-11-29)
PROC: 0KBB0ZZ Excision of Left Lower Arm and Wrist Muscle, Open Approach (ICD-10-PCS; principal; 2018-11-29 17:45)
DX: M60.000 Infective myositis, unspecified right arm (principal); L02.414 Cutaneous abscess of left upper limb; L02.511 Cutaneous abscess of right hand; K75.9 Inflammatory liver disease, unspecified

== ENCOUNTER 2019-01-20 20:29 | Emergency (ER) | payer MEDICAID ==
[~2019-01-20] VITALS: Ht 188 cm; Wt 98.6 kg
[~2019-01-20 20:29] MED LIST changes: +AUGMENTIN 875-11 TAB PO; +HYDROCODON-ACE1 EA10 PO; +MS CONTIN30 MG PO; +NEURONTIN 400400 MG PO
[2019-01-20 20:39] VITALS: Ht 188 cm; Wt 98.6 kg
[2019-01-20 21:55] LABS: APPEARANCE HAZY (CLEAR); BILIRUBIN NEGATIVE (NEGATIVE); COLOR YELLOW (YELLOW); GLUCOSE NEGATIVE (NEGATIVE); KETONE NEGATIVE (NEGATIVE); NITRITE NEGATIVE (NEGATIVE); PROTEIN 1+ mg/dL (NEGATIVE); UROBILINOGEN NORMAL (NORMAL)
[2019-01-20 21:56] LABS: RED CELLS - URINE 0-5 /hpf (0-5); WHITE CELLS - URINE >50 /hpf (0-5)
[2019-01-20 21:58] LABS: BACTERIA FEW /hpf (NONE SEEN)
[2019-01-20] MEDS ORDERED: CIPRO500 MG PO (22:42)
[2019-01-20] MEDS ORDERED: HYDROCODON-ACE1 EAC2 PO (22:42)
[2019-01-20 22:56] VITALS: BP 154/73
== END 2019-01-20 22:57 | disposition home or self-care (01) ==
LOC: D.ER 20:29
PROVIDERS: Emergency Medicine
DX: A64 Unspecified sexually transmitted disease (principal); N39.0 Urinary tract infection, site not specified

== ENCOUNTER 2019-06-16 06:18 | Emergency (ER) | payer MEDICAID ==
[~2019-06-16] VITALS: Ht 188 cm; Wt 96.4 kg
[~2019-06-16 06:18] MED LIST changes: +CIPRO500 MG PO; +HYDROCODON-ACE1 EAC2 PO
[2019-06-16 06:23] VITALS: Ht 188 cm; Wt 96.4 kg
[2019-06-16] MEDS ORDERED: HYDROCODONE-A1 UDTA2 PO (06:38)
[2019-06-16] MEDS ORDERED: VIBRAMYCIN 100100 MG PO (06:38)
[2019-06-16 06:54] VITALS: BP 140/78
== END 2019-06-16 06:55 | disposition home or self-care (01) ==
LOC: D.ER 06:18
DX: L03.116 Cellulitis of left lower limb (principal)

== ENCOUNTER 2019-10-24 17:27 | Emergency (ER) | payer MEDICAID ==
[~2019-10-24] VITALS: Ht 188 cm; Wt 95.5 kg
[~2019-10-24 17:27] MED LIST changes: +HYDROCODONE-A1 UDTA2 PO; +VIBRAMYCIN 100100 MG PO
[2019-10-24 18:04] VITALS: Ht 188 cm; Wt 95.5 kg
[2019-10-24 18:34] LABS: BASOPHILS 0.2 % (0-2); EOSINOPHILS 0.8 % (0-7); HEMATOCRIT 36.5 % (42.0-54.0); HEMOGLOBIN 12.4 g/dL (13.5-17.5); IMMATURE GRANULOCYTES 0.2 % (0-5); LYMPHOCYTES 18.7 % (15-50); MCH 28.4 pg (26.0-34.0); MCV 83.5 fL (80.0-100.0); MEAN PLATELET VOLUME 8.4 fL (7.4-10.4); MONOCYTES 8.8 % (2-11); NEUTROPHILS 71.3 % (40-80); PLATELET COUNT 398 10x3/uL (130-400); RBC 4.37 10x6/uL (4.20-6.10); RDW 14.6 % (11.5-14.5); WBC 9.3 10x3/uL (4.8-10.8)
[2019-10-24 18:45] LABS: CALC OSMOLALITY 283 mosm/kg (275-300); CALCIUM 8.6 mg/dL (8.5-10.1); CARBON DIOXIDE 27.4 mmol/L (21.0-32.0); CHLORIDE - SERUM 105 mmol/L (98-107); CREATININE - SERUM 0.8 mg/dL (0.6-1.3); GLUCOSE 138 mg/dL (74-106); POTASSIUM - SERUM 4.2 mmol/L (3.5-5.1); SODIUM 141 mmol/L (136-145); UREA NITROGEN 15 mg/dL (7-18); eGFR NON AFRICAN AMERICAN > 90 mL/min (90-120)
[2019-10-24 18:51] LABS: ALBUMIN 2.8 g/dL (3.4-5.0); ALKALINE PHOSPHATASE 90 U/L (46-116); ALT (SGPT) 18 U/L (10-68); AMYLASE - SERUM 28 U/L (25-115); BILIRUBIN - TOTAL 0.13 mg/dL (0.2-1.3); LIPASE 86 U/L (73-393); PROTEIN - SERUM 7.7 g/dL (6.4-8.2)
[2019-10-24] MEDS ORDERED: DICLOFENAC SODI50 MG PO (19:26)
[2019-10-24] MEDS ORDERED: OMEPRAZOLE20 M1 PO (19:26)
[2019-10-24] MEDS ORDERED: ZOFRAN4 MG PO (19:26)
[2019-10-24 19:32] LABS: APPEARANCE HAZY (CLEAR); BACTERIA MANY /hpf (NEGATIVE); BILIRUBIN NEGATIVE (NEGATIVE); COLOR YELLOW (YELLOW); GLUCOSE NEGATIVE (NEGATIVE); KETONE NEGATIVE (NEGATIVE); NITRITE POSITIVE (NEGATIVE); PROTEIN TRACE mg/dL (NEGATIVE); RED CELLS - URINE 0-5 /hpf (0-5); UROBILINOGEN NORMAL (NORMAL); WHITE CELLS - URINE 25-50 /hpf (NEGATIVE)
[2019-10-24] MEDS ORDERED: DOXYCYCLINE HY100 M2 PO (19:42)
[2019-10-24 21:45] VITALS: BP 118/74
== END 2019-10-24 21:45 | disposition home or self-care (01) ==
LOC: D.ER 17:27
PROVIDERS: Family Medicine
DX: L89.90 Pressure ulcer of unspecified site, unspecified stage (principal); G89.29 Other chronic pain; M25.561 Pain in right knee; R10.13 Epigastric pain; I10 Essential (primary) hypertension; Z72.0 Tobacco use

== ENCOUNTER 2019-10-25 05:27 | Emergency (ER) | payer MEDICAID ==
[~2019-10-25] VITALS: Ht 188 cm; Wt 95.5 kg
[~2019-10-25 05:27] MED LIST changes: +DICLOFENAC SODI50 MG PO; +DOXYCYCLINE HY100 M2 PO; +OMEPRAZOLE20 M1 PO; +ZOFRAN4 MG PO
[2019-10-25 05:35] VITALS: Ht 188 cm; Wt 95.5 kg
[2019-10-25 06:12] VITALS: BP 182/95
== END 2019-10-25 06:07 | disposition home or self-care (01) ==
LOC: D.ER 05:27
DX: M25.561 Pain in right knee (principal); I10 Essential (primary) hypertension